=== PATIENT | male | born 1980 | race American Indian/Alaskan Native ===

== ENCOUNTER 2017-10-12 08:26 | Emergency (ER) | payer OTHER ==
[2017-10-12 08:45] VITALS: BP 130/92
[2017-10-12 09:24] LABS: Bilirubin,Urine NEG (Negative); Blood,Urine SM (Negative); Color,Urine Yellow (Yellow); Mucus,Urine FEW /HPF; Protein,Urine <15 mg/dL mg/dL (Negative)
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
[2017-10-12] MEDS ORDERED: ZITHROMAX PO ONE (14:15)
[2017-10-12] MEDS ORDERED: XYLOCAINE 1% MPF 5 mL INFILTRATI ONE (14:15)
[2017-10-12] MEDS ORDERED: ROCEPHIN IM ONE (14:15)
[2017-10-12] MEDS ORDERED: FLAGYL PO ONE (14:15)
== END 2017-10-12 15:35 | disposition home or self-care (01) ==
LOC: ED 08:26
DX: N39.0 Urinary tract infection, site not specified (principal); F17.200 Nicotine dependence, unspecified, uncomplicated; F12.10 Cannabis abuse, uncomplicated
CPT/HCPCS: 81001; 87086; 96372; 99283; J0696

== ENCOUNTER 2019-04-23 12:38 | Emergency (ER) | payer OTHER ==
[2019-04-23 13:08] VITALS: BP 137/104
--- NOTE | 2019-04-23 13:09 | Event Note ---
ED Screening Note Date of service: 04/23/19 Time: 13:06 ED Screening Note: This is a 38 y.o. M. that presents to the ER with left elbow pain and swelling for 2 days. Denies injury This initial assessment/diagnostic orders/clinical plan/treatment(s) is/are subject to change based on patients health status, clinical progression and re- assessment by fellow clinical providers in the ED. Further treatment and workup at subsequent clinical providers discretion. Patient/guardian urged not to elope from the ED as their condition may be serious if not clinically assessed and managed. Initial orders include: XR left elbow
--- NOTE | 2019-04-23 13:41 | Emergency Department Report ---
ED Back Pain/Injury HPI - General Chief Complaint: Extremity Injury, Upper Stated Complaint: LFT ELBOW FLUIDS Time Seen by Provider: 04/23/19 13:06 Source: patient Limitations: No Limitations - History of Present Illness Initial Comments: 38 yo male comes to ER with l elbow pain; no trauma. Triage CLAIRE ordered xray. No pain. Has taken nothing at home; nor seen MD BP noted to be inc. Pt has no hx of HTN. Pt states its inc because we have to stick needle in his elbow. Pt educated to monitor bp and follow with pcp. no cp. no sob. no headache. MD Complaint: other - Related Data Previous Rx's Medication Instructions Recorded Last Taken Type Ibuprofen [Motrin] 800 mg PO Q8HR PRN #30 tablet 04/23/19 Unknown Rx predniSONE [Deltasone] 20 mg PO DAILY #5 tablet 04/23/19 Unknown Rx Allergies Allergy/AdvReac Type Severity Reaction Status Date / Time No Known Allergies Allergy Unverified 10/12/17 08:40 ED Review of Systems ROS: Stated complaint: LFT ELBOW FLUIDS Other details as noted in HPI Comment: All other systems reviewed and negative ED Past Medical Hx - Past Medical History Medical history: no medical history Surgical history: no surgical history Psychiatric history: no pertinent history Family history: hypertension ED Back Pain Physical Exam - Exam General: Vital signs noted. No distress. Alert and acting appropriately. small effusion l elbow full rom distal neurovasc intact s1s2 lungs cta no edema neuro intact ambulatory Back/Abdomen: No Abdominal Tenderness, No Perithoracic Tenderness, No Perilumbar Tenderness, No Sacroiliac Tenderness, No Flank Tenderness, No Straight Leg Raise Pain Neuro: Yes Normal Sensation, Yes Normal DTR's, Yes Normal Gait, No Motor Weakness ED Course Vital Signs 04/23/19 13:06 Temperature 98.9 F Pulse Rate 99 H Respiratory 16 Rate Blood Pressure 137/104 O2 Sat by Pulse 97 Oximetry Ed Back Pain Tests - Tests Tests: Abnormal X Rays ED Medical Decision Making - Radiology Data Radiology results: report reviewed, image reviewed - Medical Decision Making xray noted bradley for compression and rest full ROM and neurovasc intact pt was crawling last week when it started to swell very small effusion on exam to left elbow dc home with pcp follow up and conservative treatment (no draining) Vital Signs 04/23/19 13:06 Temperature 98.9 F Pulse Rate 99 H Respiratory 16 Rate Blood Pressure 137/104 O2 Sat by Pulse 97 Oximetry - Differential Diagnosis gout/bursistis/oa Critical care attestation.: If time is entered above; I have spent that time in minutes in the direct care of this critically ill patient, excluding procedure time. ED Disposition Clinical Impression: Bursitis, Elevated blood pressure reading Disposition: DC- TO HOME OR SELFCARE Is pt being admited?: No Does the pt Need Aspirin: No Condition: Stable Instructions: Elbow Bursitis (ED) Additional Instructions: compression will help the swelling go down rest meds as ordered today follow up with pcp should this persist referral below monitor bp it was elevated today in ER Prescriptions: predniSONE [Deltasone] 20 mg PO DAILY #5 tablet Ibuprofen [Motrin] 800 mg PO Q8HR PRN #30 tablet PRN Reason: Pain, Moderate (4-6) Referrals: ARNAUD KATZ MD [Staff Physician] - 3-5 Days Time of Disposition: 13:52
--- NOTE | 2019-04-23 13:47 | XRay Report ---
RIGHT ELBOW 3 VIEWS INDICATION / CLINICAL INFORMATION: olecranon swelling and pain. COMPARISON: None available. FINDINGS: Small olecranon spur. There is soft tissue thickening seen in the region of the olecranon which could represent olecranon bursitis. No other significant skeletal abnormality. Signer Name: Jonah Farmer MD FACDonovan Signed: 04/23/2019 1:43 PM Workstation Name: [id number]
== END 2019-04-23 14:16 | disposition home or self-care (01) ==
LOC: ED 12:38
DX: M71.9 Bursopathy, unspecified (principal); R03.0 Elevated blood-pressure reading, without diagnosis of hypertension

== ENCOUNTER 2019-06-21 23:16 | Emergency (ER) | payer OTHER ==
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
[2019-06-22 04:00] VITALS: BP 153/97
== END 2019-06-22 03:55 | disposition home or self-care (01) ==
LOC: ED 23:16
DX: K62.89 Other specified diseases of anus and rectum (principal); F17.200 Nicotine dependence, unspecified, uncomplicated; Z98.890 Other specified postprocedural states; Z79.1 Long term (current) use of non-steroidal anti-inflammatories (NSAID); Z79.899 Other long term (current) drug therapy
CPT/HCPCS: 99282